=== PATIENT | male | born 2000 ===

== ENCOUNTER → 2022-06-19 09:50 | Outpatient (BNVA) | payer SELFPAY | PROVIDERS: PCP Specialist | DX: Z02.1 Encounter for pre-employment examination (principal) ==

== ENCOUNTER 2022-07-17 10:00 | Outpatient (RCR) | payer OTHER, SELFPAY | END 2022-07-17 15:59 | disposition home or self-care (01) | LOC: HO.PT 10:00 | PROVIDERS: PCP Specialist; Visit Provider Specialist | DX: M54.50 Low back pain, unspecified (principal) | CPT/HCPCS: 97110; 97112; 97161; 97530 ==

== ENCOUNTER 2024-04-22 15:15 | Emergency (ER) | payer OTHER, SELFPAY ==
--- NOTE | ~2024-04-22 | XR_ITS ---
EXAMINATION: XR LUMBOSACRAL SPINE CLINICAL INFORMATION: Pain and weakness* COMPARISON: None available. TECHNIQUE: Three views of the lumbosacral spine. FINDINGS: The vertebral bodies and posterior elements are normal. The disc spaces are preserved and the vertebral alignment is normal. The paraspinal soft tissues are normal. XR/XR lumbar spine 2-3V IMPRESSION: Unremarkable examination.
--- NOTE | ~2024-04-22 | XR_ITS ---
EXAMINATION: XR CERVICAL SPINE CLINICAL INFORMATION: Pain COMPARISON: None available. TECHNIQUE: 3 views of the cervical spine were obtained. FINDINGS: There is straightening of cervical lordosis with mild narrowing of C5-C6 intervertebral disc space without evidence of spondylolysis or listhesis. Soft tissues unremarkable. XR/XR cervical spine 3V IMPRESSION: Mild narrowing of L5 6 intervertebral disc space with straightening of cervical lordosis.
[2024-04-22 15:26] VITALS: BP 122/70; PULSE 95; RESP 18; TEMP 37.3; O2SAT 99; BMI 18.0
--- NOTE | 2024-04-22 15:31 | ED_ITS ---
HPI - Extremity Injury (Lower) General Chief Complaint: Extremity Injury, Lower Stated Complaint: lower back pain, L leg/ankle pain, multiple compl Time Seen by Provider: 04/22/24 16:27 History of Present Illness HPI Narrative: Patient complains of many months of feeling fatigued associated with left back pain radiating down to the left leg, he sometimes feels like he has not able to get all the urine out and is worried he is retaining urine He denies weakness he denies incontinence he denies fever no IV drug use no recent injury no dysuria no frequency no abdominal pain no chest pain The fatigue is described as feeling exhausted frequently, but denies any fainting denies headache denies chest pain denies shortness breath denies abdominal pain or nausea or vomiting Related Data Allergies Allergy/AdvReac Type Severity Reaction Status Date / Time No Known Allergies Allergy Verified 04/22/24 15:29 [facility] Past Medical History Source: nursing notes reviewed Social History Social History Advance Directives: No Advance Directives Information Provided: No Do you have a plan to hurt others: No Plan Physical Exam 2 Vital Signs: Vital Signs: Last Vital Signs Temp 98.5 F 04/22/24 18:37 Pulse 89 04/22/24 18:37 Resp 18 04/22/24 18:37 BP 124/72 04/22/24 18:37 Pulse Ox 99 04/22/24 18:37 O2 Del Method Room Air 04/22/24 18:37 BMI result Body Mass Index 18.0 General appearance is no distress, and cooperative Head is normocephalic atraumatic Neck has full range of motion, supple, no significant tenderness over the vertebrae of the neck Respiratory no distress, chest wall nontender Abdomen soft nontender The back there was lower lumbar tenderness on both sides, skin of the back was normal, tenderness was worse on the left and left gluteal, no focal bony tenderness no CVA tenderness Extremities full range of motion x4 Skin no rash Neuro gait and balance are normal, motor is 5/5 x4 and symmetrical, sensation intact and symmetrical in distal extremities, patient can squat he can walk on heels and toes Course Course Course Narrative: This is a Rapid Medical Examination (RME) performed by Zuhair Scott PA-C in triage. Full HPI, ROS, assessment and treatment plan per primary provider in the Main ED. 23 yo male here for eval of left hip pain radiating down left leg since 09/2023. endorses left patella higher than normal that was ID'd on xr by PCP. Reports mid back pain with assoc weakness to both left upper and lower extremities since december. reports recent MRI of spine and has since completed PT. no midline spinous tenderness or step off deformity. ambulating with steady gait. Plan: labs, xr Postvoid residual was done and showed 1 mL was totally normal Lab work up with CBC and chemistry checking liver function CBC renal function was all normal no anemia, no explanation of his fatigue on labs done today Patient is advised to follow-up with the MRI done 2 months ago by his primary care doctor and see if he can get a referral to a medical support specialist There are no back pain red flags today no neurologic deficit no incontinence no weakness For his fatigue he may need to see a open end spinning operator, his doctor may choose to do other labs including thyroid and he is referred to the primary care doctor to see about referrals for his back and possibly referral to open end spinning operator for his fatigue Medical Decision Making Lab Data MDM Lab Attestation statement: I reviewed the patient's lab results. 04/22/24 15:40 04/22/24 15:40 Labs: Lab Results 04/22/24 Range/Units 15:40 WBC 5.6 (4.8-10.8) X10*3/uL RBC 5.22 (4.60-5.80) X10*6/uL Hgb 14.9 (14.0-18.0) g/dl Hct 45.2 (42.0-52.0) % MCV 86.6 (80.0-98.0) fL MCH 28.5 (27.0-33.0) pg MCHC 33.0 (31.0-36.0) g/dl RDW 13.3 (11.0-16.0) % Plt Count 199 (160-400) X10*3/uL MPV 9.5 (9.4-12.4) fL Immature Gran % (Auto) 0.2 (0.0-0.4) % Neut % (Auto) 51.9 (45-73) % Lymph % (Auto) 33.7 (20-40) % Cloud % (Auto) 9.1 (2-11) % Eos % (Auto) 4.4 H (0-4) % Baso % (Auto) 0.7 (0-2) % Lymph # (Auto) 1.9 (1.2-4.9) X10*3/uL Cloud # (Auto) 0.5 (0.1-1.2) X10*3/uL Eos # (Auto) 0.3 (0.0-0.4) X10*3/uL Baso # (Auto) 0.0 (0.0-0.2) X10*3/uL Abs Immat Gran (auto) 0.01 (0.00-0.03) X10*3/uL Absolute Neuts (auto) 2.9 (2.0-8.3) x10*3/uL Absolute Nucleated RBC 0.000 (0.0-0.012) X10*3/uL Nucleated RBC % (auto) 0.0 (0.0-0.2) /100WBC Sodium 142 (135-145) mmol/L Potassium 4.3 (3.3-5.1) mmol/L Chloride 107 (96-108) mmol/L Carbon Dioxide 29 (22-29) mmol/L Anion Gap 10 L (12-20) BUN 8 L (9-16) mg/dL Creatinine 0.66 (0.5-1.4) mg/dL Estim Creat Clear Calc 116.9 Estimated GFR > 60 Random Glucose 99 (60-115) mg/dL Calcium 9.8 (8.4-10.2) mg/dL Magnesium 1.9 (1.6-2.6) mg/dL Total Bilirubin 0.3 (0.0-1.0) mg/dL AST 18 (5-37) U/L ALT 26 (0-40) U/L Alkaline Phosphatase 91 (39-117) U/L Total Protein 6.7 (6.5-8.0) g/dL Albumin 4.5 (3.5-5.0) g/dL Discharge Plan Discharge Clinical Impression: Lumbar radiculopathy, Fatigue Patient Disposition: Home, Self-Care Additional Instructions: Workup today showed normal labs including liver test, kidney test, electrolytes and a CBC, no anemia X-rays were without any worrisome or acute findings Follow with your doctor for further evaluation of your fatigue Check with your doctor see if they could give you a referral to a back specialist to go over the MRI and see if there is any opportunity for epidural injection No sign of any dangerous or emergent condition today Follow with your doctor and return to the ER any time any worse condition or any concerns Interventions: ED Discharge Assessment Last Done: 04/22/24 18:37 Discharge Date/Time: 04/22/24 18:38 Print Language: Palauan
[2024-04-22 15:45] LABS: MANUAL DIFF FLAG NO
[2024-04-22 15:47] LABS: Basophils Percent Auto 0.7 % (0-2); Eosinophils Absolute Auto 0.3 X10*3/uL (0.0-0.4); Eosinophils Percent Auto 4.4 % (0-4); Hematocrit 45.2 % (42.0-52.0); Hemoglobin 14.9 g/dl (14.0-18.0); Imm Gran Abs Auto 0.01 X10*3/uL (0.00-0.03); Imm Gran Pct Auto 0.2 % (0.0-0.4); Lymphocytes Absolute Auto 1.9 X10*3/uL (1.2-4.9); Lymphocytes Percent Auto 33.7 % (20-40); Mean Corpuscular Hemoglobin 28.5 pg (27.0-33.0); Mean Corpuscular Volume 86.6 fL (80.0-98.0); Mean Platelet Volume 9.5 fL (9.4-12.4); Monocytes Absolute Auto 0.5 X10*3/uL (0.1-1.2); Monocytes Percent Auto 9.1 % (2-11); Neutrophils Absolute Auto 2.9 x10*3/uL (2.0-8.3); Neutrophils Percent Auto 51.9 % (45-73); Platelet Count 199 X10*3/uL (160-400); Red Blood Count 5.22 X10*6/uL (4.60-5.80); Red Cell Distribution Width 13.3 % (11.0-16.0); White Blood Count 5.6 X10*3/uL (4.8-10.8)
[2024-04-22 16:02] LABS: Alanine Aminotransferase 26 U/L (0-40); Albumin Level 4.5 g/dL (3.5-5.0); Alkaline Phosphatase 91 U/L (39-117); Anion Gap 10 (12-20); Aspartate Amino Transferase 18 U/L (5-37); Bilirubin Total 0.3 mg/dL (0.0-1.0); Blood Urea Nitrogen 8 mg/dL (9-16); Calcium 9.8 mg/dL (8.4-10.2); Carbon Dioxide 29 mmol/L (22-29); Chloride 107 mmol/L (96-108); Creatinine Clr Calc Pharmacy 116.9; Estimated Glomerular Filt Rate > 60; Glucose Random 99 mg/dL (60-115); Magnesium 1.9 mg/dL (1.6-2.6); Potassium 4.3 mmol/L (3.3-5.1); Sodium 142 mmol/L (135-145); Total Protein 6.7 g/dL (6.5-8.0)
[2024-04-22 18:22] VITALS: BP 124/72; PULSE 89; RESP 18; TEMP 36.9; O2SAT 99
[2024-04-22 18:37] VITALS: BP 124/72; PULSE 89; RESP 18; TEMP 36.9; O2SAT 99
== END 2024-04-22 18:38 | disposition home or self-care (01) ==
PROVIDERS: Physician Assistant Medical; Emergency Provider Emergency Medicine Emergency Medical Services; PCP Internal Medicine
DX: M54.16 Radiculopathy, lumbar region (principal); R53.83 Other fatigue
CPT/HCPCS: 36415; 51798; 72040; 72100; 80053; 83735; 85025; 99283

== ENCOUNTER 2025-11-01 14:15 | Outpatient (REF) | payer OTHER, SELFPAY ==
--- NOTE | 2025-11-01 | EMG_ITS ---
Chief complaint: Left-sided back pain, radiating down left leg, with paresthesias in left big toe. No footdrop. Reason for referral: Evaluate for radiculopathy versus neuropathy Referred by: Fernando ADKINS Procedure done: Bilateral lower extremity nerve conduction, left lower extremity needle EMG Precautions and/or limitations: None The limb temperature was monitored continuously and remained between 32-36 degrees C during the performance of the NCS. Nerve Conduction Studies Anti Sensory Summary Table ?Stim Site NR Onset (ms) Norm Onset (ms) Peak (ms) Norm Peak (ms) O-P Amp (?V) Norm O-P Amp Site1 Site2 Delta-0 (ms) Dist (cm) Eb (m/s) Norm Eb (m/s) Left Sural Anti Sensory (Lat Mall) Calf ? 3.0 3.5 <4.0 13.5 >5.0 Calf Lat Mall 3.0 14.0 47 Right Sural Anti Sensory (Lat Mall) Calf ? 3.2 3.7 <4.0 20.8 >5.0 Calf Lat Mall 3.2 14.0 44 Motor Summary Table ?Stim Site NR Onset (ms) Norm Onset (ms) O-P Amp (mV) Norm O-P Amp iAmp (mV) Amp (1st) (%) Site1 Site2 Delta-0 (ms) Dist (cm) Eb (m/s) Norm Eb (m/s) Left Peroneal Motor (Ext Dig Brev) Ankle ? 4.1 <4.0 3.3 >2.5 4.1 100.0 Ankle Ext Dig Brev 4.1 0.0 B Fib ? 10.2 3.3 3.8 100.0 B Fib Ankle 6.1 32.0 52 >40 Poplt ? 10.9 3.5 4.1 106.1 Poplt B Fib 0.7 5.0 71 >40 Left Tibial Motor (Abd Davis Brev) Ankle ? 3.1 <5 20.4 >2.5 27.8 100.0 Ankle Abd Davis Brev 3.1 0.0 Knee ? 10.5 15.9 21.6 77.9 Knee Ankle 7.4 40.0 54 >40 Right Tibial Motor (Abd Davis Brev) Ankle ? 3.3 <5 27.1 >2.5 38.3 100.0 Ankle Abd Davis Brev 3.3 0.0 Knee ? 10.2 23.8 32.7 87.8 Knee Ankle 6.9 40.0 58 >40 EMG ?Side Muscle Nerve Root Ins Act Fibs Psw Amp Dur Poly Recrt Int Pat Comment Left AbdHallucis MedPlantar S1-2 Nml Nml Nml Nml Nml 0 Nml Complete Left AntTibialis Dp Br Peron L4-5 Nml Nml Nml Nml Nml 0 Nml Complete Left PostTibialis Tibial L5, S1 Nml Nml Nml Nml Nml 0 Nml Complete Left MedGastroc Tibial S1-2 Nml Nml Nml Nml Nml 0 Nml Complete Left VastusMed Femoral L2-4 Nml Nml Nml Nml Nml 0 Nml Complete Left BicepsFemS Sciatic L5-S1 Nml Nml Nml Nml Nml 0 Nml Complete Paraspinal EMG ?Side Muscle Nerve Root Ins Act Fibs Psw Comment Left Lumbar Upper Rami Nml Nml Nml Left Lumbar Mid Rami Nml Nml Nml Left Lumbar Lower Rami Nml Nml Nml FINDINGS: All motor and sensory nerves tested showed normal latencies, amplitudes and conduction velocities. Concentric needle EMG was performed in selected muscles of the left lower extremity and lumbar paraspinals. Study did not reveal signs of electric abnormalities as shown in the table above. IMPRESSION: 1. This is a normal study. 2. There is no electrodiagnostic evidence for peroneal neuropathy, tibial neuropathy, lumbosacral plexopathy, lumbar radiculopathy, or peripheral neuropathy. Thank you for your kind referral. Chaya Bauer MD, BOO Board Certified, [place] [employer] and Rehabilitation (ABPMR) Board Certified, [place] Board of Electrodiagnostic Medicine (ABEM) CODIN 39531 x1 extremity MTDD
--- OUTSIDE RECORDS SUMMARY | 2025-11-01 22:23 | XMS_ITS | Encounter Summary ---
Author Organization [facility] Address [address] [place] [id number] Phone Care Team Providers Care Lean Six Sigma Senior Specialist Name Role Phone Leah Medellin MD Primary Care Provider [phone] Encounter Details Date Type Department Care Team (Late st Contact Info) Description 07/09/2017 Conversion Encounter [facility] [address] [place] [address] Social History Tobacco Use Types Packs/Day Years Used Date Smoking Tobacco: Never Comments:Never smoker Sex and Gender Information Value Date Recorded Sex Assigned at Not on file Legal Sex Male 5:22 PM EDT Gender Identity Not on file Sexual Orientation Lesbian or Ryan 01/17/2020 4: 19 PM EST documented as of this encounter Plan of Treatment Not on file documented as of this encounter Visit Diagnoses Not on filedocumented in this encounter Care Teams Lean Six Sigma Senior Specialist Relationship Specialty Start Date End Date Leah Medellin MD [address] [place] [address] PCP - General 07/03/17 12/11/22 documented as of this encounter
--- OUTSIDE RECORDS SUMMARY | 2025-11-01 22:23 | XMS_ITS | Clinical Summary ---
Author Organization [facility] Address [address] [place] [address] Phone Care Team Providers Care Drafting Layout Worker Name Role Phone Cherelle Dunn MD Primary Care Prov ider Allergies No known active allergies Medications ARIPiprazole (Abilify) 2 mg tablet 1 (one) time each day. TAKE 1 TABLET BY MOUTH ONCE A DAY X 2 WEEKS THEN INCREASE TO 1 TABLET Active escitalopram (LEXAPRO) 20 mg tablet Take 1 tablet (20 mg total) by mouth 1 (one) time each day. Active albuterol sulfate 90 mcg/actuation aero powdr breath act w/sensor Inhale 2 puffs by mouth every 4 (four) hours. Active cloNIDine (CATAPRES) 0.2 mg tablet TAKE 1 1/2 TABLETS BY MOUTH EVERY NIGHT NEEDED 11/13/2024 Active SUMAtriptan (IMITREX) 50 mg tablet Take 1 tablet (50 mg total) by mouth. Active meloxicam (MOBIC) 7.5 mg tablet Take 1 tablet (7.5 mg total) by mouth 1 (one) time each day. 30 tablet 2 06/28/2025 Active Active Problems Problem Noted Date Diagnosed Date Urinary incontinence 12/14/2024 Chronic night sweats 12/14/2024 Adjustment disorder with anxious mood Assessment & Plan (01/03/2025 9:19 AM EST): Patient follows regularly with behavioral health. Currently on Abilify, clonidine, Lexapro. Encouraged to keep the appointments with the specialist and take the medications as prescribed. No SI, HI today. Underweight Assessment & Plan (01/03/2025 9:19 AM EST): BMI is 18.1, however increased a little bit since last year. He still complains of decreased appetite, going to the gym and exercising regularly. Patient declines dietitian evaluation. We discussed today about high protein and calorie diet. Information was printed and handed out to the patient. Encounters Date Type Department Care Team Description 08/25/2025 Telephone Adult Medicine [address] [phone] Cherelle Dunn MD from Last 3 Months Immunizations Immunization Administration Dates Next Due DTaP 5 pertussis antigens, D iptheria Tetanus acellular pertussis (Daptacel) 6wks to less than 7yo 08/12/2004,03/17/2002,03/04/2001,12/21,2000 H1N1 All Forms 09/26/2009 HPV, Quadrivalent 02/02/2015,09/29/2013,08/23/20 12 Hepatitis A Pediatric (Havri x; Vaqta) 12mo to less than 19yo 11/19/2015,02/02/2015 Hepatitis B Pediatric (Enger ix B; Recombivax HB) to less than 20 yo 04/27/2001,2000,2000 HiB PRP-T conjugate (Acthib, Hiberix) 6wks and older 12/03/2001,03/04/2001,01/01/2001 Hib (HbOC) 2000 IPV Inactivated polio (Ipol) 6wks and older 08/12/2004,12/03/2001,2000,10/13 Influenza Quadrivalent, 0.5m l, preservative free (Fluarix; FluLaval; Fluzone) ages 6mo and older (Afluria) 3yo and older 09/09/2021,01/17/2021,01/03/2020,12/15,12/08/2017,08/07/2016,09/29/2013 Influenza Quadrivalent, with preservative (Fluzone; Afluria) 6mo and older 11/19/2015 Influenza Split 08/23/2012,08/18/2011,2010 Influenza trivalent, with pr eservative (Fluzone; Afluria) 6mo and older 08/23/2009,09/17/2007,10/19/2006,11/21,09/06/2004,10/14/2002,09/09/2002 MMR, measles mumps and rubel la Live (Priorix; M-M-R II) 12mo and older 08/12/2004,08/31/2001 Meningococcal B, Recombinant (Trumenba) 16yo to less than 24yo 05/06/2022,01/17/2021 Meningococcal MCV4P 10/13/2016,08/18/2011 Pneumococcal Conjugate Vacci ne, 7 Valent 02/14/2002,04/27/2001,01/01/2001,10/19 Tdap Tetanus diptheria acell ular pertussis (Boostrix; Adacel) 7yo and older 05/06/2022,08/18/2011 Varicella live (Varivax) 12m o and older 06/20/2008,08/31/2001 Medical History Medical History Date Comments Adjustment disorder with anxious mood 12/14/2023 DX:Adjustment disorder with anxious mood Underweight 12/14/2023 DX:Underweight Family History Medical History Relation Name Comments Other: Gastric issues Brother Triplet Nicotine Dependence Father Arthritis Mother Other: Diabetes Mother's side GGM Other: Kidney Disease Sister Triplet Colon cancer Neg Hx Heart attack Neg Hx Ovarian cancer Neg Hx Prostate cancer Neg Hx Stroke Neg Hx Relation Name Status Comments Brother Triplet Alive Father Alive Maternal Grandfather Maternal Grandmother Mother Alive Mother's side GGM Alive Paternal Grandfather Paternal Grandmother Sister Triplet Alive Social History Tobacco Use Types Packs/Day Years Used Date Smoking Tobacco: Never Smokeless Tobacco: Never Tobacco Cessation:Counseling Given: Not Answered Alcohol Use Standard Drinks/Week Comments Not Currently 0 (1 standard drink = 0.6 oz pur e alcohol) Housing Instability Answer Date Recorde d Are you worried that in the next 2 months you may not have stable housing? No 01/03/2025 Food Access & Nutrition Answer Date Rec orded Do you have access to a vari ety of food including fruits and vegetables? Patient declined 01/03/2025 Health Literacy Answer Date Recorded How often do you need to hav e someone help you when you read instructions, pamphlets, or other written material from your doctor or pharmacy? Rarely 01/03/2025 Caregiver: How often do you need to have someone help you when you read instructions, pamphlets, or other written material from your doctor or pharmacy? Not on file 01/03/2025 Financial Risk Answer Date Recorded How hard is it for you to pa y for the very basics like food, housing, medical care, and air conditioning / heating? Patient declined 01/03/2025 Transportation Answer Date Recorded Has the lack of transportati on kept you from meetings, work, or from getting things needed for daily living? No Has the lack of transportati on kept you from medical appointments or from getting medications? No 01/03/2025 Social Isolation Answer Date Recorded How often do you feel lonely or isolated from those around you? Sometimes 01/03/2025 Food Risk Answer Date Recorded Within the past 12 months we worried whether our food would run out before we got money to buy more. Patient declined 025 Within the past 12 months th e food we bought just didn't last and we didn't have money to get more. Patient declined 12/24 Dependent Care Answer Date Recorded Do you need help finding or paying for care for your loved ones. For example, attendant children's institution or elderly care for an older adult? No 01/03/2025 Education Answer Date Recorded Do you think completing more education or training, like finishing a GED, going to college, or learning a trade, would be helpful for you? Yes 01/03/2025 Employment and Income Answer Date Recor ded During the last four weeks, have you been actively looking for work? Yes 01/03/2025 Living Situation Answer Date Recorded What is your living situation? Unrecognized valu e 01/03/2025 Sex and Gender Information Value Date Recorded Sex Assigned at Not on file Legal Sex Male 5:29 AM EST Gender Identity Not on file Sexual Orientation Not on file Last Filed Vital Signs Vital Sign Reading Time Taken Comments Blood Pressure 101/63 05/11/2025 12:58 PM EDT Pulse 96 05/11/2025 12:58 PM EDT Temperature 36.6 C (97.8 F) 05/11/2025 12:58 PM EDT Respiratory Rate 14 06/28/2025 12:53 PM EDT Oxygen Saturation - - Inhaled Oxygen Concentration - - Weight 46.7 kg (103 lb) 06/28/2025 12:53 PM EDT Height 162.6 cm (5' 4 ) 06/28/2025 12:53 PM EDT Body Mass Index 17.68 06/28/2025 12:53 PM EDT Plan of Treatment Upcoming Encounters Date Type Department Care Team (Late st Contact Info) Description 02/02/2026 7:30 AM EDT Office Visit Adult Medicine [address] [phone] Cherelle Dunn MD [address] [place], [place] Health Maintenance Due Date Last Done Comments COVID-19 Vaccine ( season) 2025 Social Influencers of Health Screening 01/03/2026 01/03/2025 Cholesterol Screening (Lipid Panel) 12/14/2028 12/14/2023 DTaP,Tdap,and Td Vaccines (8 - Td or Tdap) 05/06/2032 05/06/2022, 08/18/2011, 08/12/2004, Additional history exists RSV Immunization Adult Patients (1 - 1-dose 75+ series) 2075 Hepatitis B Vaccines Completed 04/27/2001, 2000, 2000 HIB Vaccines Completed 12/03/2001, 02/21, 01/01/2001, Additional history exists Pneumococcal Vaccine: Pediatrics (0 to 5 Years) and At-Risk Patients (6 to 49 Years) Completed 02/14/2002, 04/27/2001, 01/01/2001, Additional history exists IPV Vaccines Completed 08/12/2004, 11/23, 2000, Additional history exists MMR Vaccines Completed 08/12/2004, 08/31/2001 Varicella Vaccines Completed 06/20/2008, 08/31/2001 HPV Vaccines Completed 02/02/2015, 05/2013, 08/23/2012 Hepatitis A Vaccines Completed 11/19/2015, 02/03/20 15 Meningococcal ACWY Vaccine Completed 10/13/2016, Influenza Vaccine Discontinued 09/09/2021, , 01/03/2020, Additional history exists Meningococcal B Vaccine Completed 05/06/2022, 01/17 HIV Screening Completed 12/15/2024 Hepatitis C Screening Completed 12/15/2024 Depression Screening Completed 01/03/2025, 12/14/19 24 RSV Immunization Patients Under 20 months Aged Out No longer eligible based on patient's age to complete this topic Procedures Procedure Name Priority Date/Time Associated Diagnosis Comments HEPATITIS C ANTIBODY Routine 12/15/2024 2:02 PM EST Screen for STD (sexually transmitted disease) HIV 1, 2 ANTIBODY, P24 ANTIGEN WITH REFLEX TO DIFFERENTIATION Routine 12/15/2024 2:02 PM EST Screen for STD (sexually transmitted disease) HM DEPRESSION SCREENING Routine 12/14/2023 LIPID PANEL Routine 12/14/2023 from Last 3 Months or Most Recently Relevant to Health Maintenance Results * Hepatitis C antibody (12/15/2024 2:02 PM EST) Pathologist [facility] Hepatitis C Antibody Negative Negative LAB CHEMISTRY METHOD 12/15/2024 5:07 PM EST [facility] Blood Venous blood specimen / Unknown Venipuncture / Unknown 12/15/2024 2:02 PM EST 12/15/2024 2:02 PM EST us Shruti ADKINS LAB BLOOD ORDERABLES Final Resul t [facility] [address] [place] [address], * HIV 1,2 antibody, p24 antigen with reflex to differentiation (12/15/2024 2:02 PM EST) Pathologist [facility] HIV Combo AB/AG Negative Negative LAB CHEMISTRY METHOD 12/15/2024 5:08 PM EST [facility] Blood Venous blood specimen / Unknown Venipuncture / Unknown 12/15/2024 2:02 PM EST 12/15/2024 2:02 PM EST [facility]ative [facility] - 12/15/2024 5:08 PM EST This assay is a 4th generation assay allowing for earlier detection of HIV infection by detecting the presence of the HIV-1 p24 antigen as well as the traditional antibodies to HIV type 1 (including group O) and type 2. Use of a 4th generation assay is the current CDC recommendation for HIV screening. Shruti ADKINS LAB BLOOD ORDERABLES Final Resul t [facility] [address] [place] [address], * Depression Screening (12/14/2023) Depression Screening Abstracted Historical Provider HEALTH MAINTENANCE Final Result * Lipid panel (12/14/2023) LDL/HDL Ratio 3 0 - 4 Triglycerides 45 0 - 150 mg/dL Cholesterol 160 0 - 200 mg/dL HDL 53 >=40 mg/dL LDL Cholesterol 98 0 - 100 mg/dL Blood Venous blood specimen / Unknown Historical Provider LAB BLOOD ORDERABLES Nichelle l Result from Last 3 Months or Most Recently Relevant to Health Maintenance Insurance [facility] Care Teams Drafting Layout Worker Relationship Specialty Start Date End Date Cherelle Dunn MD [address] [place] [phone] PCP - General 09/29/22
--- OUTSIDE RECORDS SUMMARY | 2025-11-01 22:24 | XMS_ITS | Encounter Summary ---
Author Organization [facility] Address [address] [place] [address] Phone Care Team Providers Care Ethylene Oxide Panelboard Operator Name Role Phone Leah Medellin MD Primary Care Provider [phone] Encounter Details Date Type Department Care Team (Late st Contact Info) Description 01/04/2016 Documentation [facility] [place] [address] [place] [address] Family Medicine, Physician [address] [place], [place] [phone] Social History Tobacco Use Types Packs/Day Years Used Date Smoking Tobacco: Never Assessed Sex and Gender Information Value Date Recorded Sex Assigned at Not on file Legal Sex Male 5:22 PM EDT Gender Identity Not on file Sexual Orientation Lesbian or Ryan 01/17/2020 4: 19 PM EST documented as of this encounter Plan of Treatment Not on file documented as of this encounter Visit Diagnoses Not on filedocumented in this encounter Care Teams Ethylene Oxide Panelboard Operator Relationship Specialty Start Date End Date Leah Medellin MD [address] [place] [address] [place] [address] PCP - General 07/03/17 12/11/22 documented as of this encounter
--- OUTSIDE RECORDS SUMMARY | 2025-11-01 22:24 | XMS_ITS | Encounter Summary ---
Author Organization [facility] Address [address] [place] [address] Phone Care Team Providers Care Netbackup Engineer Name Role Phone Leah Medellin MD Primary Care Provider [phone] Encounter Details Date Type Department Care Team (Late st Contact Info) Description 04/25/2015 Documentation [facility] [place] Family Medicine [address] [place] [address] Family Medicine, Physician [address] [place], [place] [id number] Social History Tobacco Use Types Packs/Day Years [...] on filedocumented in this encounter Care Teams Netbackup Engineer Relationship Specialty Start Date End Date Leah Medellin MD [address] [place] [address] [place] [address] PCP - General 07/03/17 12/11/22 documented as of this encounter
--- OUTSIDE RECORDS SUMMARY | 2025-11-01 22:24 | XMS_ITS | Encounter Summary ---
Author Organization [facility] Address [address] [place] [address] Phone Care Team Providers Care Enrollment Management Director Name Role Phone Leah Mdeellin MD Primary Care Provider [phone] Encounter Details Date Type Department Care Team (Late st Contact Info) Description 07/19/2013 [place] [facility] [place] [address] [place] [address] Family Medicine, Physician [address] [place], [place] [address] Social History Tobacco Use Types Packs/Day Years [...] on filedocumented in this encounter Care Teams Enrollment Management Director Relationship Specialty Start Date End Date Leah Medellin MD [address] [place] [address] [place] [address] PCP - General 07/03/17 12/11/22 documented as of this encounter
--- OUTSIDE RECORDS SUMMARY | 2025-11-01 22:24 | XMS_ITS | Clinical Summary ---
Author Organization [facility] Address [address] [place] [id number] Phone Care Team Providers Care Metal Neutralizer Name Role Phone Unavailable Primary Care Provider Unavailabl e Allergies No known active allergies Medications albuterol HFA (ProAir HFA) 108 (90 Base) MCG/ACT inhalerIndicatio ns:Mild intermittent asthma without complication Inhale 2 puffs every 4 (four) hours as needed for wheezing or shortness of breath (chest pain, cough). 1 Units 2 Active Additional Information Patient not taking.Reported on 05/06/2022 Spacer/Aero-Hold ing Chambers (AeroChamber Plus Miki-Vu) miscIndications: Mild intermittent asthma without complication Ut dict 1 each 2 Active Additional Information Patient not taking.Reported on 05/06/2022 SUMAtriptan 50 MG tabletIndication s:Migraine without status migrainosus, not intractable, unspecified migraine type Take one tab at onset of migraine, may repeat once in 4 hours if necessary. Take with ibuprofen as directed. 12 tablet 1 2 Active Active Problems Problem Noted Date Diagnosed Date COVID-19 11/23/2021 Overview (12/08/2021): Tested +COVID 11/20/21 mild/ mod s/s ;covid clearance 12/04/21; increase BP 133/86 may be attributed to white coat syndrome; pt reports anxious w/ VS; will cc: chart to PCP Vignesh for her review; otherwise normal lung & cardiac exam today Seasonal allergic rhinitis 01/17/2021 Adjustment disorder with anxious mood 01/11/2020 Assessment & Plan (05/06/2022 9:21 AM EDT): Followed by therapist; encouraged to find a psychiatrist to consider medication since its affecting his eating Assessment & Plan (12/08/2021 11:18 AM EST): [facility] 3-4 session Weekly and now monthly since counselor moved to another service; overall [place] preferred weekly but just glad that he is tied to mental health support clinician; discussed w/ pt the need to advocate for himself if he feels that he needs additional support w/ increase visit; pt verbalized understa Myopia of both eyes 12/15/2018 Assessment & Plan (05/06/2022 9:20 AM EDT): Sees eye doctor regularly; has glasses Assessment & Plan (01/17/2021 8:56 AM EST): Due for a scheduled follow up since Dr. Nielsen retired Assessment & Plan (01/17/2020 4:21 PM EST): Wears glasses Warner Nielsen Needs FU appt SIRI Migraine without aura and wi thout status migrainosus, not intractable 12/03/2017 Overview (12/15/2018): Occ migraines, maybe once a month, Sumatriptan helps. Assessment & Plan (05/06/2022 9:19 AM EDT): Uses sumatriptan as needed Assessment & Plan (01/17/2020 4:20 PM EST): sumatriptan prn Assessment & Plan (12/03/2017 2:12 PM EST): Has sumatriptan to use as needed; negative MRI 12/2016 Mild intermittent asthma without complication Overview (12/15/2018): occ albuterol use Assessment & Plan (05/06/2022 9:19 AM EDT): Uses albuterol as needed; last use when he had covid in october Assessment & Plan (01/17/2021 9:01 AM EST): Hasn't used it in awhile; felt an occasional wheeze but didn't have the med so just went away on its own Assessment & Plan (12/03/2017 2:12 PM EST): Albuterol as needed Immunizations Immunization Administration Dates Next Due DTaP 5 08/12/2004, 2,03/04/2001,12/21,2000 H1N1 09/26/2009 HPV, Quadrivalent 02/02/2015,09/29/2013,08/23/20 12 Hep A, ped/adol 11/19/2015,02/02/2015 Hep B, ped/adol 04/27/2001,2000,2000 Hib (HbOC) 2000 Hib (PRP-T) 12/03/2001,03/04/2001,01/01/2001 IPV 08/12/2004, 2,2000,10/13 Influenza Split 08/23/2012,08/18/2011,2010 Influenza, injectable, quadrivalent 11/19/2015 Influenza, injectable, quadr ivalent, preservative free 09/09/2021,01/17/2021,01/03/2020,12/15,12/08/2017,08/07/2016,09/29/2013 Influenza, injectable, trivalent 009,09/17/2007,10/19/2006,11/21,09/06/2004,10/14/2002,09/09/2002 MMR 08/12/2004,08/31/2001 Meningococcal B Trumenba 05/06/2022,01/17/2021 Meningococcal Conj (Menactra) MCV4P 10/13/2016,0 08/18/2011 Pneumococcal Conjugate 02/14/2002,2000,01/01/2001,10/19 Tdap 05/06/2022,08/18/2011 Varicella 06/20/2008,08/31/2001 Family History Medical History Relation Name Comments Asthma Brother pablo Other Brother pablo Asthma Mother alex Hypertension Mother alex Migraines Mother alex Rheum arthritis Mother alex Deafness Other Diabetes Other Seizures Other Asthma Sister reese IgA nephropathy Sister reese Relation Name Status Comments Brother pablo Alive Brother: Asthma / keratosis Pilaris Mother alex Alive Mother: Hyperte nsion, Rheumatoid Arthritis/asthma, Migraines Other Family history of Deafness, Family history of Diabetes mellitus, Family history of Seizure disorder Sister reese Alive Sister: Asthma / IGA Neprothapy Social History Tobacco Use Types Packs/Day Years Used Date Smoking Tobacco: Never Smokeless Tobacco: Never Comments:Never smoker Alcohol Use Standard Drinks/Week Comments No 0 (1 standard drink = 0.6 oz pur e alcohol) Hunger/Food Answer Date Recorded In the last 12 months, did y ou or your family ever eat less than you felt you should because there wasn't enough money for food? No 05/05/2022 Stable Housing Answer Date Recorded Are you worried that in the next 2 months you may not have stable housing? No 05/05/2022 Transportation Concerns Answer Date Rec orded In the last 12 months, have you or your family ever had to go without healthcare because you didn't have a way to get there? No 05/05/2022 Hazards in Home Answer Date Recorded Think about the place you li ve. Do you have problems with any of the following? Pests (mice or roaches), mold, no/not working smoke detectors, water leaks, no window guards. No 2021 Financing Utilities Answer Date Recorde d In the last 12 months, has t he electric, gas, oil, or water [employer] threatened to shut off your services in your home? No 05/05/2022 Safety at Home Answer Date Recorded Are you or your family worried about feeling saf e in your home? No 05/05/2022 Outside Support Answer Date Recorded Do you feel that you need mo re support from other people or programs to help you care for yourself or your family? No 05/05/2022 Understanding Health Concerns Answer Da te Recorded Do you need help understandi ng your or your child's healthcare needs (diagnosis, medications, plan, etc.)? No 05/05/2022 Financing Health Concerns Answer Date R ecorded In the last 12 months, was t here a time when your child needed to see a doctor or get medications or supplies but could not because of cost? No 05/05/2022 Missing School or Work Answer Date Glen rded Did you or your child miss s chool or work because of a health problem that could have been avoided? No 05/05/2022 Sex and Gender Information Value Date Recorded Sex Assigned at Not on file Legal Sex Male 5:22 PM EDT Gender Identity Not on file Sexual Orientation Lesbian or Ryan 01/17/2020 4: 19 PM EST Last Filed Vital Signs Vital Sign Reading Time Taken Comments Blood Pressure 125/79 05/06/2022 10:23 AM EDT manually Pulse 75 05/06/2022 8:49 AM EDT Temperature 36.2 C (97.1 F) 05/06/2022 8:49 AM EDT Respiratory Rate 16 12/03/2017 1:29 PM EST Oxygen Saturation 100% 08/09/2013 12: 00 AM EDT Inhaled Oxygen Concentration - - Weight 51.2 kg (112 lb 12.8 oz) 05/06/2022 8:49 AM EDT Height 162.6 cm (5' 4 ) 05/06/2022 8:49 AM EDT Body Mass Index 19.36 05/06/2022 8:49 AM EDT Plan of Treatment Health Maintenance Due Date Last Done Comments HIV Screening 05/06/2023 05/06/2022, 06/10/2021 Syphilis Screening (consider for higher risk patients) 05/06/2023 05/06/2022 Influenza Vaccines (#1) 2025 09/19/20 22, 09/09/2021, 01/17/2021, Additional history exists COVID-19 Vaccine ( - 2024-2 6 season) 2025 04/28/2022, 05/02/2021, 04/04/2021 DTaP,Tdap,and Td Vaccines (8 - Td or Tdap) 05/06/2032 05/06/2022, 08/18/2011, 08/12/2004, Additional history exists Hepatitis B Vaccines Completed 04/27/2001, 2000, 2000 HIB Vaccines Completed 12/03/2001, 02/21, 01/01/2001, Additional history exists Pneumococcal Vaccine Completed 02/14/2002, 04/27/2001, 01/01/2001, Additional history exists IPV Vaccines Completed 08/12/2004, 11/23, 2000, Additional history exists MMR Vaccines Completed 08/12/2004, 08/31/2001 Varicella Vaccines Completed 06/20/2008, 08/31/2001 HPV Vaccines Completed 02/02/2015, 05/2013, 08/23/2012 Hepatitis A Vaccines Completed 11/19/2015, 02/03/20 15 Meningococcal Vaccine Completed 10/13/2016, 011 Men B Vaccine Completed 05/06/2022, 01/17/2021 Procedures * Due to [place] [email or web address] law, this organization might not be sharing sensitive test results. Procedure Name Priority Date/Time Associated Diagnosis Comments RPR Routine 05/06/2022 10:24 AM EDT Routine screening for STI (sexually transmitted infection) CHLAMYDIA AND GONORRHEA, AMPLIFIED Routine 05/06/2022 9:37 AM EDT Well adult exam from Last 3 Months or Most Recently Relevant to Health Maintenance Results * Due to [place] [email or web address] law, this organization might not be sharing sensitive test results. * RPR (05/06/2022 10:24 AM EDT) [facility] Signature SYPHILIS SCREEN BY EMMANUEL NEGATIVE (NEG) [facility] Comment: Reference range: Negative This test was performed on the [employer] Senior [employer] Associate immunoassay system. RPR Titer NOT INDICATED [facility] T pallidum Antibodies (TP-PA) NOT INDICATED [facility] SYPHILIS INTERPRETATION Indicative of the absence of infection with Treponemal pallidum. Test may be negative in cases of incubating or early primary syphilis. Consider repeat testing in several weeks if clinical suspicion is high. [facility] Comment: Testing performed or reported by [facility], a Service of [facility], [facility] [place] [address] Bruno Cai MD, [employer] [place]# [id number] Blood (Blood, Venous) 05/06/2022 10:24 AM EDT 05/06/2022 10:25 AM EDT Leah Medellin MD LAB BLOOD ORDERABLES Final Res ult [facility] * Chlamydia and Gonorrhoea, Amplified (05/06/2022 9:37 AM EDT) Chlamydia Trachomatis, DNA Probe NEGATIVE (NEG) [facility] Comment: No Chlamydia Trachomatis RNA detected in this patient's sample (REFERENCE RANGE/NORMAL VALUE: NOT DETECTED) Note: This test uses fiscal clerk- mediated amplification method to detect rRNA from C. Trachomatis URINE GC AMP PROBE NEGATIVE (NEG) [facility] Comment: No Neisseria Gonorrhoeae RNA detected in this patient's sample (REFERENCE RANGE/NORMAL VALUE: NOT DETECTED) NOTE: This test uses fiscal clerk-mediated amplification method to detect rRNA from N.Gonorrhoeae. A negative result does not preclude infection. In the case of a negative urine result, testing of an endocervical(female) or urethral (male) specimen is recommended if there is high clinical suspicion of infection. Due to very high sensitivity of Nucleic Acid Amplification Test, false positive results may occur. Therefore, specimen handling is extremely important. In patients in whom the disease is unlikely, additional sample for testing should be considered after an initial positive result. The performance characteristics of this test have not been evaluated in children. The Aptima Combo2 assay is not intended for the evaluation of suspected sexual abuse or for other medico-legal indications. The ordering provider should assess if the patient had consensual sex without risk of sexual abuse. Consult the [facility] if needed. Contact phone number . Therapeutic failure or success cannot be determined with the Aptima Combo2 assay since nucleic acid may persist following appropriate antimicrobial therapy. The Centers for Disease Control and Prevention (CDC) recommends confirmatory retesting using culture or a different nucleic acid amplification test when positive results occur, if indicated. Testing performed or reported by [facility], a Service of [facility], [address] [place], [place] [address] Bruno Cai MD, [employer] [facility]# [id number] Urine (Urine) 05/06/2022 9:3 7 AM EDT 05/06/2022 5:33 PM EDT Leah Medellin MD LAB MICROBIOLOGY - GENERAL ORD ERABLES Final Result [facility] from Last 3 Months or Most Recently Relevant to Health Maintenance
== END 2025-11-01 14:16 | disposition home or self-care (01) ==
LOC: HO.NEURO 14:15
PROVIDERS: PCP Internal Medicine; Visit Provider Physician Assistant
DX: G60.3 Idiopathic progressive neuropathy (principal); R20.2 Paresthesia of skin; M54.9 Dorsalgia, unspecified
CPT/HCPCS: 95886; 95909

== ENCOUNTER → 2025-11-01 14:30 | Outpatient (BNV) | payer OTHER, SELFPAY | PROVIDERS: PCP Internal Medicine; Visit Provider Physical Medicine & Rehabilitation | DX: M54.50 Low back pain, unspecified (principal); R20.2 Paresthesia of skin | CPT/HCPCS: 95886; 95909 ==